=== PATIENT | female | born 1995 | race Caucasian/White ===

== ENCOUNTER 2022-05-26 09:24 | Emergency (ER) | payer OTHER ==
--- NOTE | 2022-05-26 11:04 | ED Physician Documentation ---
PD HPI HEENT - Stated complaint Stated Complaint: RT EAR PX - Chief complaint Chief Complaint: Heent - History obtained from History obtained from: Patient - Additional information Additional information: The patient comes to the emergency department chief complaint of right ear pain. She states that this is been going on for the last couple of days and feels like prior to her infection she has had before. The patient has also had some trouble with allergies recently. She states they just moved here with the [facility] at the beginning of April and that she has not established any care yet. She does note that she has been treated 4 times in the last year for otitis media, and has been wanting to see an ENT to sort out her recurrent ear infections. She denies any fevers or chills. No recent upper respiratory infection. She states her hearing is slightly diminished. She has not been flying or diving recently. She states that in the process of the move they did have some variation in elevation with driving but she did not notice any ear problems at that time. No ringing in the ear. She has noticed a sore "lump" behind her ear. She also has a slight headache. No other complaints at this time. Review of Systems Ten Systems: 10 systems reviewed and negative Constitutional: reports: Reviewed and negative Eyes: reports: Reviewed and negative Ears: reports: Loss of hearing, Ear pain. denies: Drainage/discharge, Tinnitus/ringing Nose: reports: Reviewed and negative Throat: reports: Reviewed and negative Cardiac: reports: Reviewed and negative Respiratory: reports: Reviewed and negative GI: reports: Reviewed and negative : reports: Reviewed and negative Skin: reports: Reviewed and negative Musculoskeletal: reports: Reviewed and negative Neurologic: reports: Headache. denies: Head injury Psychiatric: reports: Reviewed and negative Endocrine: reports: Reviewed and negative Immunocompromised: reports: Reviewed and negative PD PAST MEDICAL HISTORY - Present Medications Home Medications: Ambulatory Orders Medication Instructions Recorded Confirmed Atorvastatin [Lipitor] 20 mg PO DAILY 05/26/22 05/26/22 Cyclobenzaprine [Flexeril] 10 mg PO PRN PRN 05/26/22 05/26/22 Famotidine [Acid-Pep] 20 mg PO PRN PRN 05/26/22 05/26/22 Fluoxetine HCl 60 mg PO DAILY 05/26/22 05/26/22 Fluticasone [Flonase] 2 sprays DEMAR DAILY 05/26/22 05/26/22 Ibuprofen [Motrin] 1 tablet PO PRN PRN 05/26/22 05/26/22 Pseudoephedrine HCl [Sudafed 240 mg PO DAILY PRN #10 tab 05/26/22 24-Hour] Rizatriptan Benzoate [Rizatriptan] 5 mg PO PRN PRN 05/26/22 05/26/22 buPROPion [Wellbutrin Xl] 300 mg PO DAILY 05/26/22 05/26/22 hydrOXYzine HCL [Hydroxyzine HCl] 0 mg PO PRN PRN 05/26/22 05/26/22 metFORMIN [Glucophage] 500 mg PO BID 05/26/22 05/26/22 predniSONE [Deltasone] 60 mg PO DAILY 5 Days #15 tablet 05/26/22 - Allergies Allergies/Adverse Reactions: Allergies Allergy/AdvReac Type Severity Reaction Status Date / Time No Known Drug Allergies Allergy Verified 05/26/22 09:32 PD ED PE NORMAL - Vitals Vital signs reviewed: Yes - General General: Alert and oriented X 3, No acute distress, Well developed/nourished - HEENT HEENT: Atraumatic, PERRL, EOMI, Moist mucous membranes, Other (Mild bulging of the right TM, which is translucent and nonerythematous. Clear fluid noted behind the TM with a bubble in it. TM is intact. No erythema or drainage in the canal. Posterior auricular lymph node that is mildly shotty and tender.) - Neck Neck: Supple, no meningeal sign - Respiratory Respiratory: No respiratory distress - Derm Derm: Normal color, Warm and dry, No rash - Extremities Extremities: No deformity - Neuro Neuro: Alert and oriented X 3 - Psych Psych: Normal mood, Normal affect Results - Vitals Vitals: Vital Signs - 24 hr 05/26/22 09:30 Temperature 37.2 C Heart Rate 79 Respiratory 14 Rate Blood Pressure 133/85 H O2 Saturation 98 Oxygen O2 Source Room air PD MEDICAL DECISION MAKING - ED course Complexity details: considered differential, d/w patient, d/w family ED course: I discussed with the patient that at this point in time, her ear does not appear infected. However, there is some fluid behind the eardrum and a little bit of bulging and most likely, the discomfort in the ear is due to pressure behind the tympanic membrane. I will put her on a course of prednisone and Sudafed to try to relieve any inflammation and clogging of the eustachian tube and allow pressure to equalize. The patient is advised to get established with primary care through the [facility] and to follow-up this issue if she is not feeling better after the next week. If she develops worsening pain or if she develops fevers, she is advised to return to the emergency department. Departure - Departure Disposition: 01 Home, Self Care Clinical Impression: Serous otitis media Qualifiers: Chronicity: acute Laterality: right Recurrence: not specified as recurrent Qualified Code(s): H65.01 - Acute serous otitis media, right ear Condition: Stable Instructions: ED Otitis Media Serous Adult Prescriptions: predniSONE [Deltasone] 60 mg PO DAILY 5 Days #15 tablet Pseudoephedrine HCl [Sudafed 24-Hour] 240 mg PO DAILY PRN #10 tab PRN Reason: Allergy Symptoms Comments: There is no evidence of infection today, but you do have some clear fluid behind your eardrum that is causing the eardrum to bulge slightly. This is most likely the cause of your discomfort, and his eardrum is very sensitive. Most likely, your eustachian tubes are not properly relieving the pressure and fluid from behind your eardrum and this is the reason for the exam findings and symptoms. Other findings of infection are not present however, and at this time, it is not appropriate to start antibiotics. We will put you on a decongestant and a short course of steroids to help relieve inflammation both in the ear itself and in the tube and to open up the tube so the pressure and fluid can drain out. This should bring relief of your symptoms. If you are not feeling better in the next week, please follow-up with your primary care physician through the [facility] to discuss the next best step. Your prescriptions have been electronically transmitted to [facility] in [place].
[2022-05-26] MEDS: predniSONE 20 MG TABLET PO STA (11:08)
[2022-05-26] MEDS: PSEUDOEPHEDRINE 30 MG TABLET PO STA (11:08)
[2022-05-26 11:13] VITALS: BP 122/82
== END 2022-05-26 11:12 | disposition home or self-care (01) ==
LOC: ED 09:24
DX: H65.01 Acute serous otitis media, right ear (principal)
CPT/HCPCS: 99282; 99284; A9270; J7512

== ENCOUNTER 2022-09-18 07:50 | Outpatient (CLI) | payer OTHER ==
[2022-09-18 11:50] LABS: BASOPHILS % (AUTO) 0.7 %; EOSINOPHILS # (AUTO) 0.3 10^3/uL (0.0-0.7); EOSINOPHILS % (AUTO) 5.4 %; HCT - HEMATOCRIT 40.8 % (37.0-47.0); HGB - HEMOGLOBIN 13.2 g/dL (12.0-16.0); LYMPHOCYTES # (AUTO) 2.5 10^3/uL (1.5-3.5); LYMPHOCYTES % (AUTO) 41.7 %; MEAN CORPUSCULAR HEMOGLOBIN 28.1 pg (27.0-31.0); MEAN CORPUSCULAR HGB CONC 32.4 g/dL (32.0-36.0); MEAN PLATELET VOLUME 11.9 fL (7.9-10.8); MONOCYTES # (AUTO) 0.5 10^3/uL (0.0-1.0); MONOCYTES % (AUTO) 8.8 %; NEUTROPHILS # (AUTO) 2.6 10^3/uL (1.5-6.6); NEUTROPHILS % (AUTO) 43.2 %; PLT - PLATELET COUNT 318 10^3/uL (130-450); RED BLOOD COUNT 4.69 10^6/uL (4.20-5.40); WHITE BLOOD COUNT 5.9 x10^3/uL (4.8-10.8)
[2022-09-18 12:08] LABS: ESTIMATED AVERAGE GLUCOSE 108 mg/dL (70-100); HEMOGLOBIN A1c% 5.4 % (4.27-6.07)
[2022-09-18 12:19] LABS: ALBUMIN 4.4 g/dL (3.2-5.5); ALBUMIN/GLOBULIN RATIO 1.3 (1.0-2.2); ALKALINE PHOSPHATASE 58 IU/L (42-121); ALT ALANINE AMINOTRANSFERASE 21 IU/L (10-60); AST ASPARTATE AMINOTRANSFERASE 18 IU/L (10-42); BILIRUBIN,TOTAL 0.6 mg/dL (0.2-1.0); BUN - BLOOD UREA NITROGEN 13 mg/dL (6-20); CALCIUM 9.5 mg/dL (8.5-10.3); CARBON DIOXIDE - CO2 27 mmol/L (21-32); CHLORIDE 101 mmol/L (101-111); CHOL/HDL RATIO 3.8 (<4.4); CHOLESTEROL 227 mg/dL; CREATININE 0.8 mg/dL (0.4-1.0); GFR - MDRD 87 (>89); GLUCOSE 80 mg/dL (70-100); HDL CHOLESTEROL 60 mg/dL; LDL CHOLESTEROL,CALCULATED 154 mg/dL; LDL/HDL RATIO 2.6 (<4.4); POTASSIUM 3.9 mmol/L (3.5-5.0); SODIUM 136 mmol/L (135-145); TOTAL PROTEIN 7.7 g/dL (6.7-8.2); TRIGLYCERIDES 64 mg/dL; VLDL CHOLESTEROL 13 mg/dL
[2022-09-18 12:27] LABS: THYROID STIMULATING HORMONE 2.87 uIU/mL (0.34-5.60)
== END 2022-09-18 07:51 | disposition home or self-care (01) ==
LOC: LAB.N 07:50
PROVIDERS: ATTEND Nurse Practitioner
DX: D64.9 Anemia, unspecified (principal); E66.9 Obesity, unspecified; Z51.81 Encounter for therapeutic drug level monitoring; Z13.220 Encounter for screening for lipoid disorders
CPT/HCPCS: 36415; 80053; 80061; 83036; 83721; 84443; 85025

== ENCOUNTER 2022-10-19 08:00 | Outpatient (CLI) | payer OTHER | END 2022-10-19 23:59 | disposition home or self-care (01) | LOC: LAB.N 08:00 | PROVIDERS: ATTEND Nurse Practitioner | DX: Z33.1 Pregnant state, incidental (principal) | CPT/HCPCS: 36415; 84702 ==

== ENCOUNTER 2022-11-15 08:00 | Outpatient (CLI) | payer OTHER ==
[2022-11-15 14:52] LABS: BILIRUBIN,URINE NEGATIVE (NEGATIVE); GLUCOSE, URINE (UA) NEGATIVE (NEGATIVE); KETONES,URINE (UA) NEGATIVE (NEGATIVE); LEUKOCYTE ESTERASE, URINE NEGATIVE (NEGATIVE); NITRITE,URINE NEGATIVE (NEGATIVE); OCCULT BLOOD,URINE NEGATIVE (NEGATIVE); PH,URINE 6.5 PH (5.0-7.5); PROTEIN,URINE NEGATIVE (NEGATIVE); UROBILINOGEN,URINE 0.2 (NORMAL) E.U./dL (NORMAL)
[2022-11-15 15:20] LABS: AMORPHOUS SEDIMENT,UR Moderate /LPF; BACTERIA,URINE Few /HPF (None Seen); CLARITY,URINE CLOUDY (CLEAR); RBC,URINE 0-5 /HPF (0-5); SQUAMOUS EPITHELIAL CELL,UR FEW Squamous (<= Few)
[2022-11-15 15:21] LABS: CRYSTALS,URINE 6-10 Calcium Oxalate /LPF
== END 2022-11-15 23:59 | disposition home or self-care (01) ==
LOC: LAB.WC 08:00
PROVIDERS: ATTEND Nurse Practitioner
DX: Z34.90 Encounter for supervision of normal pregnancy, unspecified, unspecified trimester (principal)
CPT/HCPCS: 81001; 87086

== ENCOUNTER 2022-11-29 07:21 | Outpatient (CLI) | payer OTHER ==
--- NOTE | 2022-11-29 09:32 | Ultrasound Report ---
PROCEDURE: OB First Trimester INDICATIONS: POSITIVE TEST OUTSIDE/PRIOR DATING DATA: Last menstrual period (LMP): 09/19/2022. LMP-based estimated date of delivery (CARLOS A): 06/26/2023. First dating scan (date and location): 11/29/2022. Estimated date of delivery (CARLOS A) from first dating scan: 06/26/2023. TECHNIQUE: Real-time scanning was performed of the fetus and maternal pelvic organs, with image documentation. COMPARISON: None FINDINGS: Heart is 160 bpm. Cervical length is about 4.8 cm, limiting evaluation. Mean gestational sac diameter is 4.6 cm. [place]-rump length is 3.2 cm. Ultrasound age is 10 weeks and 1 day. Yolk sac is seen measuring 4 to 5 mm. Corpus luteum not definitely identified. IMPRESSION: Living intrauterine at an ultrasound age of 10 weeks and 1 day. Reviewed by: Vadim Ricks MD on 11/29/2022 9:31 AM PST Approved by: Vadim Ricks MD on 11/29/2022 9:31 AM PST Station ID: [id number]
== END 2022-11-29 07:22 | disposition home or self-care (01) ==
LOC: DI 07:21
PROVIDERS: ATTEND Nurse Practitioner
DX: Z34.91 Encounter for supervision of normal pregnancy, unspecified, first trimester (principal)

== ENCOUNTER 2022-12-12 08:00 | Outpatient (CLI) | payer OTHER ==
[2022-12-14 00:01] LABS: CHLAMYDIA TRACHOMATIS DNA NEGATIVE (NEGATIVE); NEISSERIA GONORRHOEAE DNA NEGATIVE (NEGATIVE); TRICHOMONAS VAGINALIS DNA NEGATIVE (NEGATIVE)
== END 2022-12-12 23:59 | disposition home or self-care (01) ==
LOC: LAB.R 08:00
PROVIDERS: ATTEND Obstetrics & Gynecology
DX: Z11.3 Encounter for screening for infections with a predominantly sexual mode of transmission (principal)
CPT/HCPCS: 87491; 87591; 87661

== ENCOUNTER 2022-12-27 09:01 | Outpatient (CLI) | payer OTHER ==
[2022-12-27 11:57] LABS: BASOPHILS % (AUTO) 0.4 %; EOSINOPHILS # (AUTO) 0.4 10^3/uL (0.0-0.7); EOSINOPHILS % (AUTO) 4.6 %; HCT - HEMATOCRIT 39.6 % (37.0-47.0); HGB - HEMOGLOBIN 12.9 g/dL (12.0-16.0); LYMPHOCYTES # (AUTO) 2.3 10^3/uL (1.5-3.5); LYMPHOCYTES % (AUTO) 30.4 %; MEAN CORPUSCULAR HEMOGLOBIN 29.1 pg (27.0-31.0); MEAN CORPUSCULAR HGB CONC 32.6 g/dL (32.0-36.0); MEAN CORPUSCULAR VOLUME 89.2 fL (81.0-99.0); MEAN PLATELET VOLUME 11.7 fL (7.9-10.8); MONOCYTES # (AUTO) 0.5 10^3/uL (0.0-1.0); MONOCYTES % (AUTO) 6.4 %; NEUTROPHILS # (AUTO) 4.4 10^3/uL (1.5-6.6); NEUTROPHILS % (AUTO) 57.9 %; PLT - PLATELET COUNT 269 10^3/uL (130-450); RED BLOOD COUNT 4.44 10^6/uL (4.20-5.40); WHITE BLOOD COUNT 7.5 x10^3/uL (4.8-10.8)
[2022-12-28 05:10] LABS: HIV SCREEN 4TH GENERATION Non Reactive (Non Reactive)
[2022-12-28 06:09] LABS: HCV AB <0.1 s/co ratio (0.0-0.9)
[2022-12-28 10:08] LABS: VARICELLA-ZOSTER AB IGG 242 index (Immune >165)
[2022-12-29 07:15] LABS: RPR Non Reactive (Non Reactive)
[2022-12-29 11:08] LABS: HBsAG SCREEN Negative (Negative)
== END 2022-12-27 09:02 | disposition home or self-care (01) ==
LOC: LAB.N 09:01
PROVIDERS: ATTEND Nurse Practitioner
DX: O99.211 Obesity complicating pregnancy, first trimester (principal)
CPT/HCPCS: 36415; 85025; 86592; 86762; 86787; 86803; 86850; 86900; 86901; 87340; 87389

== ENCOUNTER 2022-12-27 09:52 | Outpatient (CLI) | payer OTHER | END 2022-12-27 09:53 | disposition home or self-care (01) | LOC: LAB 09:52 | PROVIDERS: ATTEND Obstetrics & Gynecology | DX: Z53.9 Procedure and treatment not carried out, unspecified reason (principal) ==

== ENCOUNTER 2023-02-10 14:22 | Outpatient (CLI) | payer OTHER ==
--- NOTE | 2023-02-10 17:45 | Ultrasound Report ---
PROCEDURE: OB Detailed Eval INDICATIONS: SUPERVISION OF OUTSIDE/PRIOR DATING DATA: Last menstrual period (LMP): 09/19/2022. LMP-based estimated date of delivery (CARLOS A): 06/26/2023. First dating scan (date and location): 11/29/2022. Estimated date of delivery (CARLOS A) from first dating scan: 06/26/2023. TECHNIQUE: Real-time scanning was performed of the fetus, with image documentation and biometric measurements. Endovaginal scanning: Not performed COMPARISON: 11/29/2022 FINDINGS: General: A single living intrauterine gestation is present. Presentation: Vertex Placenta: Placental position is posterior, without previa. Amniotic fluid index: 15.8 cm, normal for gestational age. heart rate: 137 beats per minute. Maternal cervical canal: 4.6 cm long; normal length is 2.5 cm or more. biometrics: Biparietal diameter: 4.6 cm, 20 weeks 4 days Head circumference: 18.3 cm, 20 weeks 5 days Abdominal circumference: 15.9 cm, 21 weeks 0 days Femur length: 3.4 cm, 20 weeks 6 days Estimated gestational age from initial scan: 20 weeks 4 days. Composite gestational age from present scan: 20 weeks 4 days Estimated weight and percentile: 384 g, 63rd percentile Measurement variability in biometric dating: +/- 10 days from 12-20 weeks gestation, +/- 2 weeks from 20-30 weeks gestation, +/- 3 weeks at 30 weeks gestation or later. Anatomic survey: Neuro: Ventricles are normal at less than 10 mm. Cisterna magna is normal at 3-11 mm. Cerebellum i s normal in size and morphology. Nuchal skin fold: Normal at less than 6 mm between 14 and 20 weeks gestational age. Face: Nose and lips, facial profile are normal. Spine: No evidence for spina bifida. Heart: 4-chambered heart is present, with normal ventricular outflow tracts. Diaphragm: Diaphragm is intact. Stomach: Left-sided stomach is present. Kidneys: No hydronephrosis. Normal is less than 5 mm in 2nd trimester, less than 7 mm in 3rd trimester. Cord: 3 vessel cord has orthotopic insertion. Bladder: Normal in size. Extremities: All 4 extremities are visualized. IMPRESSION: 1. Single living intrauterine . 2. Normal second semester anatomy survey. No anomalies detected at this time. Reviewed by: Edilson Kennedy MD on 02/10/2023 5:44 PM PDT Approved by: Edilson Kennedy MD on 02/10/2023 5:44 PM PDT Station ID: [id number]
== END 2023-02-10 14:23 | disposition home or self-care (01) ==
LOC: DI 14:22
PROVIDERS: ATTEND Obstetrics & Gynecology
DX: Z34.92 Encounter for supervision of normal pregnancy, unspecified, second trimester (principal)

== ENCOUNTER 2023-03-31 14:33 | Outpatient (CLI) | payer OTHER ==
[2023-03-31 17:37] LABS: HCT - HEMATOCRIT 36.8 % (37.0-47.0); HGB - HEMOGLOBIN 12.1 g/dL (12.0-16.0); MEAN CORPUSCULAR HEMOGLOBIN 30.8 pg (27.0-31.0); MEAN CORPUSCULAR HGB CONC 32.9 g/dL (32.0-36.0); MEAN CORPUSCULAR VOLUME 93.6 fL (81.0-99.0); MEAN PLATELET VOLUME 10.5 fL (7.9-10.8); RED BLOOD COUNT 3.93 10^6/uL (4.20-5.40); RED CELL DISTRIBUTION WIDTH 13.2 % (12.0-15.0); WHITE BLOOD COUNT 9.8 x10^3/uL (4.8-10.8)
== END 2023-03-31 14:34 | disposition home or self-care (01) ==
LOC: LAB.N 14:33
PROVIDERS: ATTEND Nurse Practitioner
DX: O99.212 Obesity complicating pregnancy, second trimester (principal)
CPT/HCPCS: 36415; 82950; 85027

== ENCOUNTER 2023-04-28 07:06 | Outpatient (CLI) | payer OTHER ==
--- NOTE | 2023-04-28 16:51 | Ultrasound Report ---
PROCEDURE: OB F/U or Repeat INDICATIONS: OBESITY COMPLICATING OUTSIDE/PRIOR DATING DATA: Last menstrual period (LMP): 09/19/2022. LMP-based estimated date of delivery (CARLOS A): 06/26/2023. First dating scan (date and location): 11/29/2022. Estimated date of delivery (CARLOS A) from first dating scan: 06/26/2023. TECHNIQUE: Real-time scanning was performed of the fetus, with image documentation and biometric measurements. Endovaginal scanning: No COMPARISON: 02/10/2023 FINDINGS: General: A single living intrauterine gestation is present. Presentation: Vertex Placenta: Placental position is posterior, without previa. Amniotic fluid index: 13.9 cm, for a 4th percentile for gestational age. heart rate: 126 beats per minute. Maternal cervical canal: 5.4 cm long; normal length is 2.5 cm or more. biometrics: Biparietal diameter: 82 mm; 32 weeks 6 days Head circumference: 302 mm; 33 weeks 4 days Abdominal circumference: 282 mm intercondylar 2 weeks 2 days Femur length: 62 mm ankle and 32 weeks 2 days Estimated gestational age from initial scan: 31 weeks 4 days Composite gestational age from present scan: 32 weeks 5 days Estimated weight and percentile: 1975 g, which is at the 60th percentile for gestational age Measurement variability in biometric dating: +/- 10 days from 12-20 weeks gestation, +/- 2 weeks from 20-30 weeks gestation, +/- 3 weeks at 30 weeks gestation or more. Other: Not applicable. IMPRESSION: 1. Single living intrauterine gestation. 2. Appropriate interval growth. Reviewed by: Rachele Shook MD on 04/28/2023 4:50 PM PDT Approved by: Rachele Shook MD on 04/28/2023 4:50 PM PDT Station ID: [id number]
== END 2023-04-28 07:07 | disposition home or self-care (01) ==
LOC: DI 07:06
PROVIDERS: ATTEND Obstetrics & Gynecology
DX: O99.213 Obesity complicating pregnancy, third trimester (principal); Z3A.31 31 weeks gestation of pregnancy

== ENCOUNTER 2023-05-15 08:00 | Outpatient (CLI) | payer OTHER ==
[2023-05-15 15:58] LABS: BILIRUBIN,URINE NEGATIVE (NEGATIVE); GLUCOSE, URINE (UA) NEGATIVE (NEGATIVE); KETONES,URINE (UA) TRACE mg/dL (NEGATIVE); LEUKOCYTE ESTERASE, URINE SMALL (NEGATIVE); NITRITE,URINE NEGATIVE (NEGATIVE); OCCULT BLOOD,URINE NEGATIVE (NEGATIVE); PROTEIN,URINE NEGATIVE (NEGATIVE); UROBILINOGEN,URINE 0.2 (NORMAL) E.U./dL (NORMAL)
[2023-05-15 15:59] LABS: CLARITY,URINE HAZY (CLEAR)
[2023-05-15 16:09] LABS: BACTERIA,URINE Moderate /HPF (None Seen); MUCUS,URINE Moderate Strands; RBC,URINE 0-5 /HPF (0-5); SQUAMOUS EPITHELIAL CELL,UR FEW Squamous (<= Few)
== END 2023-05-15 23:59 | disposition home or self-care (01) ==
LOC: LAB.WC 08:00
PROVIDERS: ATTEND Obstetrics & Gynecology
DX: R30.0 Dysuria (principal)
CPT/HCPCS: 81001; 87086; 87181

== ENCOUNTER 2023-05-28 11:23 | Outpatient (CLI) | payer OTHER ==
[2023-05-28 11:34] LABS: HCT - HEMATOCRIT 34.3 % (37.0-47.0); HGB - HEMOGLOBIN 11.5 g/dL (12.0-16.0); MEAN CORPUSCULAR HEMOGLOBIN 29.8 pg (27.0-31.0); MEAN CORPUSCULAR HGB CONC 33.5 g/dL (32.0-36.0); MEAN CORPUSCULAR VOLUME 88.9 fL (81.0-99.0); MEAN PLATELET VOLUME 10.6 fL (7.9-10.8); RED BLOOD COUNT 3.86 10^6/uL (4.20-5.40); RED CELL DISTRIBUTION WIDTH 11.9 % (12.0-15.0)
[2023-05-28 11:45] LABS: ALBUMIN 2.5 g/dL (3.2-5.5); ALBUMIN/GLOBULIN RATIO 0.8 (1.0-2.2); BILIRUBIN,TOTAL 0.5 mg/dL (0.2-1.0); CALCIUM 8.4 mg/dL (8.5-10.3); CREATININE 0.7 mg/dL (0.4-1.0); POTASSIUM 3.9 mmol/L (3.5-5.0); TOTAL PROTEIN 5.8 g/dL (6.7-8.2)
[2023-05-28 12:02] LABS: CREATININE,URINE 45.2 mg/dL
[2023-05-28 12:07] LABS: TOTAL PROTEIN,URINE TIMED < 6 mg/dL
== END 2023-05-28 11:24 | disposition home or self-care (01) ==
LOC: LAB 11:23
PROVIDERS: ATTEND Obstetrics & Gynecology
DX: O14.00 Mild to moderate pre-eclampsia, unspecified trimester (principal)
CPT/HCPCS: 36415; 80053; 82570; 84156; 85027

== ENCOUNTER 2023-05-29 08:00 | Outpatient (CLI) | payer OTHER | END 2023-05-29 23:59 | disposition home or self-care (01) | LOC: LAB.WC 08:00 | PROVIDERS: ATTEND Obstetrics & Gynecology | DX: O14.03 Mild to moderate pre-eclampsia, third trimester (principal); Z3A.35 35 weeks gestation of pregnancy | CPT/HCPCS: 87797 ==

== ENCOUNTER 2023-06-17 19:10 | Inpatient (IN) | payer OTHER ==
[2023-06-17] MEDS ORDERED: LACTATED RINGERS 1,000 ML IV PRN (22:10)
[2023-06-17] MEDS ORDERED: CARBOPROST TROMETHAMINE 250 MCG/ML AMP IM PRN (22:10)
[2023-06-17] MEDS ORDERED: miSOPROStoL 200 MCG TABLET BC PRN (22:10)
[2023-06-17] MEDS ORDERED: TRANEXAMIC ACID IN NACL 1,000 MG/100 ML BAG IV PRN (22:10)
[2023-06-17] MEDS ORDERED: miSOPROStoL 200 MCG TABLET PR PRN (22:10)
[2023-06-17] MEDS ORDERED: OXYTOCIN/SODIUM CHLORIDE 500 ML IV PRN (22:10)
[2023-06-17] MEDS ORDERED: fentaNYL 100 MCG/2 ML VIAL IVP PRN (22:10)
[2023-06-17] MEDS ORDERED: TERBUTALINE 1 MG/ML VIAL SUBQ PRN (22:10)
[2023-06-17] MEDS ORDERED: OXYTOCIN 10 UNIT/ML VIAL IM PRN (22:10)
[2023-06-17] MEDS ORDERED: AMPICILLIN 2 GM in SODIUM CHLORIDE 0.9% MINIBAG 100 ML IV ONE (22:10)
[2023-06-17] MEDS ORDERED: METHYLERGONOVINE 0.2 MG/ML VIAL IM PRN (22:10)
[2023-06-17] MEDS ORDERED: lidocaine 1% 20 ML MDV ID PRN (22:10)
[2023-06-17] MEDS ORDERED: SODIUM CHLORIDE FLUSH 0.9% 10 ML SYRINGE IVP PRN (22:10)
--- NOTE | 2023-06-17 22:18 | HISTORY & PHYSICAL EXAMINATION ---
Admit History - Visit Reason Visit Reason: Contractions - : 2 Parity: 0 Care: positive: [facility] Complications This : positive: Treated for GBS/UTI - Mother's Labs Mother's Blood Type: positive: O Mother's RH: positive: Positive GBS: positive: Group B Strep Positive Rubella Status: positive: Immune - Other Maternal History Other Maternal History: Med: Anxiety, depression, PTSD, borderline personality disorder, OCD Surg: Bilateral knee Fam: Mother- thyroid, DM, hyperlipidemia, depression, anemia Social: , denies patience - HPI Diagnosis/Indication for NST: Other (Early term labor) Vital Signs Temperature 98.1 F 06/17/23 19:25 Heart Rate 77 06/17/23 19:25 Respiratory Rate 18 06/17/23 19:25 Blood Pressure 125/87 H 06/17/23 19:25 Temperature 98.1 F 06/17/23 19:25 Heart Rate 77 06/17/23 19:25 Respiratory Rate 18 06/17/23 19:25 Blood Pressure 125/87 H 06/17/23 19:25 O2 Saturation If not protocol: Oxygen Flow, liters/minute - NST Procedure NST Procedure Start Time 11:17 Stop Time 11:43 EFM: 130s, moderate variability, positive 15x15 accelerations, no decelerations [place]: contractions every 4 min NST reactive/Cat 1 Performed and read 06/17/23 - Results and Plan Plan: Cervical change from 2cm to 5cm, admitted in active labor Meds/Allgy - Home Medications Home Medications: Ambulatory Orders Medication Instructions Recorded Confirmed Famotidine [Acid-Pep] 20 mg PO PRN PRN 05/26/22 05/26/22 Fluoxetine HCl 60 mg PO DAILY 05/26/22 05/26/22 Fluticasone [Flonase] 2 sprays DEMAR DAILY 05/26/22 05/26/22 buPROPion [Wellbutrin Xl] 300 mg PO DAILY 05/26/22 05/26/22 - Allergies Allergies/Adverse Reactions: Allergies Allergy/AdvReac Type Severity Reaction Status Date / Time No Known Drug Allergies Allergy Verified 05/26/22 09:32 Physical - Abdominal Exam Vital Signs: Temp Pulse Resp BP Pulse Ox O2 Flow Rate 98.1 F 77 18 125/87 H 06/17/23 19:25 06/17/23 19:25 06/17/23 19:25 06/17/23 19:25 Contraction Frequency (min/apart): 4 Contraction Intensity: positive: Mild to moderate Uterine Resting Tone: positive: Soft - Monitoring Heart Rate Baseline: 130 Strip Review: positive: Category I - Presentation Presentation: positive: Vertex (Placenta posterior, EFW 3400g) - Vaginal Exam Membranes: positive: Membranes intact Dilation (in cm): 6 Effacement (%): 100 Station: positive: -3 Cervical Position: positive: Midposition Plan for Labor - Plan For Labor I expect patient to be DC'd or transferred within 96 hours.: Yes Plan for Labor: 27yo at 38.5w presenting with painful contractions every 4 minutes intermittently since this morning. Denies leaking fluid or bleeding. Good movement. complicated by depression/anxiety, BMI 36, GBS UTI. VSS NST reactive Cervical change from 2cm to 6cm in triage. 27yo at 38.5w by LMP consistent with 10w US admitted in active labor - Admit - CBC, T&S - Continue Wellbutrin and fluoxetine - Start ampicillin for GBS now
[2023-06-17 22:53] LABS: BASOPHILS % (AUTO) 0.1 %; EOSINOPHILS # (AUTO) 0.1 10^3/uL (0.0-0.7); EOSINOPHILS % (AUTO) 0.4 %; HCT - HEMATOCRIT 39.5 % (37.0-47.0); HGB - HEMOGLOBIN 13.1 g/dL (12.0-16.0); LYMPHOCYTES # (AUTO) 2.1 10^3/uL (1.5-3.5); LYMPHOCYTES % (AUTO) 15.1 %; MEAN CORPUSCULAR HGB CONC 33.2 g/dL (32.0-36.0); MEAN CORPUSCULAR VOLUME 87.4 fL (81.0-99.0); MEAN PLATELET VOLUME 11.4 fL (7.9-10.8); MONOCYTES # (AUTO) 0.8 10^3/uL (0.0-1.0); MONOCYTES % (AUTO) 5.5 %; NEUTROPHILS # (AUTO) 10.7 10^3/uL (1.5-6.6); NEUTROPHILS % (AUTO) 78.3 %; PLT - PLATELET COUNT 246 10^3/uL (130-450); RED BLOOD COUNT 4.52 10^6/uL (4.20-5.40); RED CELL DISTRIBUTION WIDTH 12.3 % (12.0-15.0); WHITE BLOOD COUNT 13.7 x10^3/uL (4.8-10.8)
[2023-06-17] MEDS ORDERED: LACTATED RINGERS 1,000 ML IV SCH (23:00)
[2023-06-17] MEDS ORDERED: SODIUM CHLORIDE FLUSH 0.9% 10 ML SYRINGE IVP SCH (23:00)
[2023-06-17] MEDS ORDERED: ROPIVACAINE 0.2% 200 MG/100 ML BAG EP ONE (23:07)
[2023-06-17] MEDS ORDERED: ePHEDrine 50 MG/ML VIAL IVP PRN (23:51)
[2023-06-17] MEDS ORDERED: NALBUPHINE 10 MG/ML AMP IVP PRN (23:51)
[2023-06-17] MEDS ORDERED: diphenhydrAMINE INJ 50 MG/ML VIAL IVP PRN (23:51)
[2023-06-17] MEDS ORDERED: ROPIVACAINE 0.2% 200 MG/100 ML BAG EP PRN (23:51)
[2023-06-17] MEDS ORDERED: NALOXONE 0.4 MG/ML VIAL IVP PRN (23:51)
--- NOTE | 2023-06-17 23:55 | ANESTHESIA ---
Pre-Anesthesia VS, & Labs - Diagnosis active labor - Procedure labor epidural Vital Signs: Temp Pulse Resp BP Pulse Ox O2 Flow Rate 36.7 C 77 18 125/87 H 06/17/23 22:47 06/17/23 22:47 06/17/23 22:47 06/17/23 22:47 Height: 5 ft 6 in Weight (kg): 104.326 kg Body Mass Index: 37.1 BMI Classification: Obese - NPO Other (clears from now until delivery) - Is Patient ?: Yes - Lab Results Current Lab Results: Laboratory Tests 06/17/23 22:40: WBC 13.7 H, RBC 4.52, Hgb 13.1, Hct 39.5, MCV 87.4, MCH 29.0, MCHC 33.2, RDW 12.3, Plt Count 246, MPV 11.4 H, Neut # (Auto) 10.7 H, Lymph # (Auto) 2.1, [place] # (Auto) 0.8, Eos # (Auto) 0.1, Baso # (Auto) 0.0, Absolute Nucleated RBC 0.00, Nucleated RBC % 0.0 06/17/23 22:40: Blood Type O POSITIVE, Antibody Screen NEGATIVE Fish Bones: 06/17/23 22:40 Home Medications and Allergies Active Medications Bupropion HCl (Bupropion Xl 150 Mg Tablet) 300 mg PO DAILY [facility] Carboprost Tromethamine (Carboprost Tromethamine 250 Mcg/Ml Amp) 250 mcg IM .ONCE PRN PRN Reason: Hemorrhage Diphenhydramine HCl (Diphenhydramine Inj 50 Mg/Ml Vial) 12.5 - 25 mg IVP Q6HR PRN PRN Reason: ITCHING Fentanyl (Fentanyl 100 Mcg/2 Ml Vial) 50 mcg IVP Q1H PRN PRN Reason: Severe Pain (score 7-10) Fluoxetine HCl (Fluoxetine 10 Mg Capsule) 80 mg PO DAILY RI[place] Lactated Ringer's (Lr) 500 mls @ 999 mls/hr IV PRN PRN PRN Reason: PER PHYSICIAN ORDER Oxytocin/Sodium Chloride (Pitocin/Sodium Chloride) 500 mls @ 999 mls/hr IV PRN PRN; Protocol PRN Reason: POST- HEMORR PREVENTION Tranexamic Acid (Tranexamic 1,000 Mg/100ml-Nacl) 1,000 mg in 100 mls @ 600 mls/hr IV Q30M PRN PRN Reason: EBL >1200mL and within 3hr Lactated Ringer's (Lr) 1,000 mls @ 125 mls/hr IV .Q8H [facility] Last Admin: 06/17/23 23:22 Dose: 125 mls/hr Ampicillin Sodium 1 gm/ Sodium (Chloride) 100 mls @ 200 mls/hr IV Q4H [facility] Lidocaine HCl (Lidocaine 1% 20 Ml Mdv) 20 ml ID .ONCE PRN PRN Reason: PERINEAL REPAIR Stop: 06/20/23 22:11 Methylergonovine Maleate (Methylergonovine 0.2 Mg/Ml Vial) 0.2 mg IM .ONCE PRN PRN Reason: Hemorrhage Misoprostol (Misoprostol 200 Mcg Tablet) 600 mcg BC .ONCE PRN PRN Reason: Hemorrhage Misoprostol (Misoprostol 200 Mcg Tablet) 800 mcg NC .ONCE PRN PRN Reason: Hemorrhage Ondansetron HCl (Ondansetron 4 Mg/2 Ml Vial) 4 mg IVP Q6HR PRN PRN Reason: Nausea / Vomiting Oxytocin (Oxytocin 10 Unit/Ml Vial) 10 unit IM .ONCE PRN PRN Reason: Step One if no IV access. Sodium Chloride (Sodium Chloride Flush 0.9% 10 Ml Syringe) 10 ml IVP PRN PRN PRN Reason: NEEDED PER PROVIDER ORDERS Sodium Chloride (Sodium Chloride Flush 0.9% 10 Ml Syringe) 10 ml IVP Q8H [facility] Terbutaline Sulfate (Terbutaline 1 Mg/Ml Vial) 0.25 mg SUBQ .ONCE PRN PRN Reason: Tachystole Famotidine [Acid-Pep] 20 mg PO PRN PRN 05/26/22 Fluoxetine HCl 60 mg PO DAILY 05/26/22 Fluticasone [Flonase] 2 sprays DEMAR DAILY 05/26/22 buPROPion [Wellbutrin Xl] 300 mg PO DAILY 05/26/22 Allergies/Adverse Reactions: Allergies Allergy/AdvReac Type Severity Reaction Status Date / Time No Known Drug Allergies Allergy Verified 05/26/22 09:32 Anes History & Medical History - Anesthetic History Anesthesia Complications: reports: No previous complications - Medical History Cardiovascular: reports: None Pulmonary: reports: None Smoking Status: Never smoker Psychosocial: reports: Depression, Anxiety History of Cancer?: No - Obstetrical History : 2 Parity: 0 Complications: reports: Treated for GBS/UTI Exam General: Alert, Oriented x3, Moderate distress Dental: WNL Mouth Opening: Greater than 4 Fingerbreadths Mallampati classification: II Thyromental Distance: greater than 6 cm Respiratory: Lungs clear Cardiovascular: Regular rate Plan Anesthesia Type: Epidural Consent for Procedure(s) Verified and Reviewed: Yes Code Status: Attempt Resuscitation ASA classification: 2-Mild systemic disease Is this case an emergency?: No
[2023-06-18] MEDS ORDERED: fentaNYL 100 MCG/2 ML VIAL ONE (00:05)
[2023-06-18] MEDS ORDERED: LIDOCAINE-MPF 1% 5 ML VIAL ONE (00:05)
[2023-06-18] MEDS: ONDANSETRON 4 MG/2 ML VIAL IVP PRN ×2 (00:05→08:01)
[2023-06-18] MEDS ORDERED: LIDOCAINE-PF 2% 10 ML AMP SUBQ ONE (00:31)
[2023-06-18] MEDS: AMPICILLIN 1 GM in SODIUM CHLORIDE 0.9% MINIBAG 100 ML IV SCH (03:57)
[2023-06-18] MEDS ORDERED: LIDOCAINE 2%-EPI 1:100000 20 ML MDV ONE (10:30)
[2023-06-18] MEDS ORDERED: WITCH HAZEL/GLYCERIN 1 PAD TOP PRN (11:09)
[2023-06-18] MEDS ORDERED: HYDROCORTISONE 1% CREAM 28 GM TUBE PR PRN (11:09)
--- NOTE | 2023-06-18 11:28 | DELIVERY NOTE ---
Delivery Note - Labor Labor: positive: Augmented by ARM, Augmented by oxytocin - Infant Delivery Method Delivery Method: positive: Spontaneous vaginal delivery - Presentation Presentation: positive: Vertex, LOP - left occiput posterior - Nuchal Cord Nuchal Cord: positive: None - Anesthetic Anesthetic Type: - Amniotic Fluid Description Amniotic Fluid Description: positive: Clear - Vacuum Use Indication for Vacuum Use: positive: Shortening of 2nd stage for maternal benefit Vacuum Extraction: positive: Successful Number of pop-offs: 0 - Episiotomy Type Episiotomy Type: positive: None - Laceration Laceration: positive: 2nd degree (vaginal laceration) - Suture Suture Size: positive: 3-0 - Delivery Outcome Delivery Outcome: positive: Livebirth - [place] : positive: Placed in direct skin contact with mother, Bulb syringe, Stimulated, Warmed, [place] used, Warmer used sex: positive: Female - Placenta Placenta: positive: Intact, Spontaneous - Estimated Blood Loss Estimated Blood Loss (in cc): 800 - Delivery Comments (Free Text/Narrative) Delivery Comments (Free Text/Narrative): 10/100/+2 with maternal pushing good efforts. Pushing almost 3 hours with good progress but mother exhausted. Offered VAVD, risks reviewed. She would like to proceed and informed consent obtained. Epidural in place. Bladder emptied and catheter removed. [place]wi vacuum applied to flexion point +3 station and used with one contraction and delivery achieved. No detachments. LOP. Shoulders and body delivered with ease. Baby girl placed on mother's abdomen. Cord clamped and cut and baby moved to warmer to waiting roof tile layer. Bleeding encountered initially after bleeding resolved with uterine massage. Pitocin infused. Second degree vaginal laceration repaired in usual fashion with 3-0 vicryl. Hemostasis. Massage performed and removed remaining clots. Bladder emptied again and catheter removed. QBL 800cc.
[2023-06-18] MEDS ORDERED: LACTATED RINGERS 1,000 ML IV SCH (12:00)
[2023-06-18] MEDS: ACETAMINOPHEN 500 MG TABLET PO SCH ×2 (12:08→20:26)
[2023-06-18] MEDS: buPROPion XL 150 MG TABLET PO SCH (12:09)
[2023-06-18] MEDS: IBUPROFEN 800 MG TABLET PO SCH ×2 (12:10→20:26)
[2023-06-18] MEDS: FLUoxetine 10 MG CAPSULE PO SCH (12:23)
[2023-06-18] MEDS: DOCUSATE SODIUM 100 MG CAPSULE PO SCH (20:26)
[2023-06-19] MEDS: IBUPROFEN 800 MG TABLET PO SCH ×4 (02:59→21:05)
[2023-06-19] MEDS: AMPICILLIN 1 GM in SODIUM CHLORIDE 0.9% MINIBAG 100 ML IV SCH (04:27)
[2023-06-19] MEDS: ACETAMINOPHEN 500 MG TABLET PO SCH ×4 (04:50→22:54)
[2023-06-19 04:53] LABS: BASOPHILS % (AUTO) 0.2 %; EOSINOPHILS % (AUTO) 0.3 %; HCT - HEMATOCRIT 29.1 % (37.0-47.0); HGB - HEMOGLOBIN 9.6 g/dL (12.0-16.0); LYMPHOCYTES # (AUTO) 3.6 10^3/uL (1.5-3.5); LYMPHOCYTES % (AUTO) 23.1 %; MEAN CORPUSCULAR HEMOGLOBIN 29.2 pg (27.0-31.0); MEAN CORPUSCULAR VOLUME 88.4 fL (81.0-99.0); MEAN PLATELET VOLUME 11.4 fL (7.9-10.8); MONOCYTES # (AUTO) 1.1 10^3/uL (0.0-1.0); NEUTROPHILS # (AUTO) 10.7 10^3/uL (1.5-6.6); NEUTROPHILS % (AUTO) 68.9 %; PLT - PLATELET COUNT 197 10^3/uL (130-450); RED BLOOD COUNT 3.29 10^6/uL (4.20-5.40); RED CELL DISTRIBUTION WIDTH 12.4 % (12.0-15.0); WHITE BLOOD COUNT 15.5 x10^3/uL (4.8-10.8)
[2023-06-19] MEDS: DOCUSATE SODIUM 100 MG CAPSULE PO SCH ×2 (08:52→21:05)
[2023-06-19] MEDS: FLUoxetine 10 MG CAPSULE PO SCH (08:52)
[2023-06-19] MEDS: buPROPion XL 150 MG TABLET PO SCH (08:52)
--- NOTE | 2023-06-19 09:18 | PROVIDER PROGRESS NOTE ---
Subjective - Prog Note Date Prog Note Date: 06/19/23 Prog Note Time: 09:16 - Subjective Subjective: Patient is PPD#1 s/p complicated by hemorrhage. Patient is doing well this morning. Ambulating, tolerating regular diet, passing flatus, voiding. Lochia is appropriate. Objective - Vital Signs/Intake & Output Vital Signs: Vital Signs x48h Pulse Resp BP Pulse Ox 06/19/23 04:48 67 16 110/71 94 Intake & Output: Intake & Output 06/16/23 06/17/23 06/18/23 06/19/23 23:59 23:59 23:59 23:59 Intake Total 2263.767 1000 Output Total 980 Balance 4831.993 7603 - Objective General Appearance: positive: No acute distress Respiratory: positive: Breath sounds nml Cardiovascular: positive: Regular rate & rhythm Abdomen: positive: Non-tender (firm fundus below umbilicus) Skin: positive: Color nml Extremities: positive: Non-tender, Pedal edema (1+ bilateral edema) Neurologic/Psychiatric: positive: Mood/affect nml - Lab Results Fish Bones: 06/19/23 04:46 Other Labs: Lab Results x24hrs 06/19/23 06/19/23 Range/Units 04:46 04:46 WBC 15.5 H (4.8-10.8) x10^3/uL RBC 3.29 L (4.20-5.40) 10^6/uL Hgb 9.6 L (12.0-16.0) g/dL Hct 29.1 L (37.0-47.0) % MCV 88.4 (81.0-99.0) fL MCH 29.2 (27.0-31.0) pg MCHC 33.0 (32.0-36.0) g/dL RDW 12.4 (12.0-15.0) % Plt Count 197 (130-450) 10^3/uL MPV 11.4 H (7.9-10.8) fL Neut # (Auto) 10.7 H (1.5-6.6) 10^3/uL Lymph # (Auto) 3.6 H (1.5-3.5) 10^3/uL [place] # (Auto) 1.1 H (0.0-1.0) 10^3/uL Eos # (Auto) 0.0 (0.0-0.7) 10^3/uL Baso # (Auto) 0.0 (0.0-0.1) 10^3/uL Absolute Nucleated RBC 0.00 x10^3/uL Nucleated RBC % 0.0 /100WBC Ferritin 22.8 (11.0-306.8) ng/mL Assessment/Plan - Problem List (1) Vaginal delivery Impression: PPD#1 reviewed signs symptoms of depression. Patient states mood is okay this morning. (2) hemorrhage Impression: pt had immediate hemorrhage lochia appropriate this morning firm fundus will start PO iron
[2023-06-19] MEDS: FERROUS SULFATE 325 MG TABLET PO SCH (18:32)
[2023-06-20] MEDS: IBUPROFEN 800 MG TABLET PO SCH ×2 (03:03→10:45)
[2023-06-20] MEDS: FLUoxetine 10 MG CAPSULE PO SCH (07:58)
[2023-06-20] MEDS: ACETAMINOPHEN 500 MG TABLET PO SCH (07:58)
[2023-06-20] MEDS: FERROUS SULFATE 325 MG TABLET PO SCH (07:58)
[2023-06-20] MEDS: buPROPion XL 150 MG TABLET PO SCH (07:58)
[2023-06-20 08:27] VITALS: BP 127/82
--- NOTE | 2023-06-20 10:01 | PROVIDER PROGRESS NOTE ---
Subjective - Prog Note Date Prog Note Date: 06/20/23 Prog Note Time: 09:59 - Subjective Subjective: Patient is PPD#2 s/p complicated by hemorrhage. Patient is doing well this morning. Ambulating, tolerating regular diet, spontaneously voiding. Lochia < menses. Objective - Vital Signs/Intake & Output Vital Signs: Vital Signs x48h Temp Pulse Resp BP Pulse Ox 06/20/23 08:00 98.1 F 61 16 127/82 H 99 06/20/23 03:05 97.8 F 68 16 123/78 98 Intake & Output: Intake & Output 06/17/23 06/18/23 06/19/23 06/20/23 23:59 23:59 23:59 23:59 Intake Total 2263.767 1000 Output Total 980 Balance 5108.071 0108 - Objective General Appearance: positive: No acute distress Respiratory: positive: Breath sounds nml Cardiovascular: positive: Regular rate & rhythm Abdomen: positive: Non-tender (firm fundus below umbilicus) Extremities: positive: Pedal edema (2+) Neurologic/Psychiatric: positive: Oriented x3, Mood/affect nml - Lab Results Fish Bones: 06/19/23 04:46 Assessment/Plan - Problem List (1) Vaginal delivery Impression: uncomplicated course. Discussed signs/symptoms of depression. Patient discharged to home today.
--- NOTE | 2023-06-20 10:03 | DISCHARGE SUMMARY ---
Discharge Summary Discharge Date: 06/20/23 Discharging Provider: Joseph Discharge Disposition: 01 Home, Self Care - DIAGNOSES Admission Diagnoses: vaginal delivery hemorrhage - HOSPITAL COURSE Hospital Course: Patient presented in labor. She had a vacuum assisted vaginal delivery. Delivery was complicated by a hemorrhage. Patient had an uncomplicated course and was discharged to home on PPD#2. - ALLERGIES Allergies/Adverse Reactions: Allergies Allergy/AdvReac Type Severity Reaction Status Date / Time No Known Drug Allergies Allergy Verified 05/26/22 09:32 - MEDICATIONS Home Medications: Ambulatory Orders Medication Instructions Recorded Confirmed Famotidine [Acid-Pep] 20 mg PO PRN PRN 05/26/22 05/26/22 Fluoxetine HCl 60 mg PO DAILY 05/26/22 05/26/22 Fluticasone [Flonase] 2 sprays DEMAR DAILY 05/26/22 05/26/22 buPROPion [Wellbutrin Xl] 300 mg PO DAILY 05/26/22 05/26/22 - PHYSICAL EXAM AT DISCHARGE General Appearance: positive: No acute distress Respiratory: positive: Breath sounds nml Cardiovascular: positive: Regular rate & rhythm Abdomen: positive: Non-tender (FFBU) Skin: positive: Color nml Extremities: positive: Pedal edema (2+) Neurologic/Psychiatric: positive: Mood/affect nml - LABS Result Diagrams: 06/19/23 04:46
--- NOTE | 2023-06-20 10:07 | Discharge Plan ---
Discharge Plan Problem Reviewed?: Yes Disposition: Home, Self Care Condition: Good Prescriptions: Docusate Sodium 100Mg Capsule [Colace 100Mg Capsule] 100 mg PO BID PRN 30 Days #60 cap PRN Reason: Constipation Ferrous Sulfate [Feosol] 325 mg PO BIDWM 30 Days #60 tab Ibuprofen [Motrin] 800 mg PO Q6H PRN #11 tab PRN Reason: Pain 5-7 Diet: Regular Activity Restrictions: nothing in the vagina No Smoking: If you smoke, Please STOP! Call for help. Follow-up with: Katie Macias ARNP [Primary Care Provider] -
--- NOTE | 2023-06-20 11:28 | Labor Flowsheet ---
Labor Flowsheet Datetime Report Generated by CPN: 06/20/2023 11:28 Datetime: 06/20/2023 07:37 VITAL SIGNS NBP Sys/Mirian/Mean (mmHg): 127 : 82 : 92 Pulse: 53 Datetime: 06/19/2023 15:00 SpO2 (%): 100 Datetime: 06/18/2023 12:30 Station Vacuum/Forceps Applied: +3 Datetime: 06/18/2023 12:15 Stage of : Recovery Datetime: 06/18/2023 11:35 PAIN Pain Scale: 4 Pain Presence: Intermittent Pain Type: Cramping Pain Location: Abdomen; Back Datetime: 06/18/2023 11:31 Temperature (C): 36.6 Datetime: 06/18/2023 11:16 LaborFlag: Labor Datetime: 06/18/2023 10:15 UTERINE ACTIVITY Monitor Mode: External Frequency (min): 3-4 Quality: Strong Duration (sec): 60-80 Pattern: Normal: <= 5 Contractions in 10 Minutes Resting Tone (Palpate): Relaxed Pitocin Checklist: At Least 1 Acceleration of 15 bpm x 15 Seconds in 30 Minutes or Adequate Variabi lity; No More than 1 Late Deceleration Occurred in Past 30 Minutes; No More than 2 Variable Decelerat ions > 60 Seconds in Duration and decreasing >60 bpm in 30 minutes; No More than 5 Uterine Contractio ns in 10 Minutes for any 20 Minute Interval; Uterus Palpates Soft between Contractions ASSESSMENT A Monitor Mode: External US FHR Baseline Rate : 130 FHR Baseline Changes: No Baseline Change Variability: Moderate 6-25 bpm Decelerations: Variable STAGE 2 Pushing: Coached on Pushing Pushing Position: Pushing with Contractions Pushing Progress: Descent with Pushing; Pushing Effectively with Contractions Datetime: 06/18/2023 09:08 MEDICATIONS Pitocin (milliunits): Increased to @ 8 Datetime: 06/18/2023 09:00 Category: Category II Datetime: 06/18/2023 08:45 Accelerations: 15X15 Datetime: 06/18/2023 07:30 VAGINAL EXAM Dilatation (cm): 10.0 Effacement (%): 100 Station: 1 Exam by: Gallito Donnelly,RN COMMUNICATION Communication: Provider at Bedside Datetime: 06/18/2023 06:52 Membrane Status: Ruptured Membranes Rupture Method: Artificial Amniotic Fluid Color: Clear Amniotic Fluid Amount: Moderate Amniotic Fluid Odor: None Datetime: 06/18/2023 06:01 Temperature Route: Oral Anesthesia Level Check: T10- Umbilicus Datetime: 06/18/2023 05:58 Vaginal Bleeding: Small Cervix, Consistency: Soft Cervix, Position: Midposition Datetime: 06/18/2023 05:47 Monitor Interventions for UA: [place] Adjusted Datetime: 06/18/2023 05:30 Contraction Comments: indeterminate of UC pattern Datetime: 06/18/2023 04:36 Patient Position/Activity: Left Tilt; High Fowlers Patient Care Comments: lateral up Datetime: 06/18/2023 03:58 Antibiotics: Ampicillin IV 1 Gm Datetime: 06/18/2023 03:30 Pain Goal: 7 Datetime: 06/18/2023 03:27 PATIENT CARE IV/Blood Work: IV Bolus Started Datetime: 06/18/2023 02:29 Hygiene: Underpad Changed Datetime: 06/18/2023 00:58 Epidural Procedure Other: Pump Started Datetime: 06/18/2023 00:51 Epidural Procedure: Loading Dose Datetime: 06/17/2023 23:50 I/O Interventions: Miles Cath Inserted Datetime: 06/17/2023 23:02 PROCEDURE TIME OUT Procedure Verify: Agreement on Procedure to be Done; Correct Patient Position ANESTHESIA Anesthesia Plans: Epidural Epidural Positioning: Sitting Datetime: 06/17/2023 23:01 Comments: 125 Datetime: 06/17/2023 22:30 Pain Coping: Requesting Pain Medication or Epidural Provider Notified (Name): aguila
== END 2023-06-20 11:15 | disposition home or self-care (01) | DRG 807 ==
LOC: WFO 19:10 → FBP 19:12 → WFO 22:20
PROVIDERS: ADMIT Obstetrics & Gynecology; ATTEND Obstetrics & Gynecology Obstetrics
PROC: 10907ZC Drainage of Amniotic Fluid, Therapeutic from Products of Conception, Via Natural or Artificial Opening (ICD-10-PCS; principal; 2023-06-18)
PROC: 10D07Z6 Extraction of Products of Conception, Vacuum, Via Natural or Artificial Opening (ICD-10-PCS; 2023-06-18)
PROC: 0KQM0ZZ Repair Perineum Muscle, Open Approach (ICD-10-PCS; 2023-06-18)
DX: O99.824 Streptococcus B carrier state complicating childbirth (principal); Z37.0 Single live birth; O75.81 Maternal exhaustion complicating labor and delivery; O72.1 Other immediate postpartum hemorrhage; O99.344 Other mental disorders complicating childbirth; F32.A Depression, unspecified; F41.9 Anxiety disorder, unspecified; O99.214 Obesity complicating childbirth; O70.1 Second degree perineal laceration during delivery; Z3A.38 38 weeks gestation of pregnancy
CPT/HCPCS: 36415; 82728; 85025; 86850; 86900; 86901; 99214; A9270; J7120; 59025

== ENCOUNTER 2023-07-21 12:12 | Outpatient (CLI) | payer OTHER ==
[2023-07-21 13:39] LABS: ESTIMATED AVERAGE GLUCOSE 100 mg/dL (70-100); HEMOGLOBIN A1c% 5.1 % (4.27-6.07)
[2023-07-21 22:33] LABS: BACTERIAL VAGINOSIS DNA NEGATIVE (NEGATIVE); CANDIDA GLABRATA DNA NEGATIVE (NEGATIVE); CANDIDA GROUP DNA NEGATIVE (NEGATIVE); CANDIDA KRUSEI DNA NEGATIVE (NEGATIVE); TRICHOMONAS VAGINALIS DNA NEGATIVE (NEGATIVE)
== END 2023-07-21 12:13 | disposition home or self-care (01) ==
LOC: LAB 12:12
PROVIDERS: ATTEND Nurse Practitioner
DX: E28.2 Polycystic ovarian syndrome (principal); R61 Generalized hyperhidrosis; N89.8 Other specified noninflammatory disorders of vagina
CPT/HCPCS: 36415; 81514; 81599; 83036; 84443; 87109

== ENCOUNTER 2023-10-07 14:16 | Outpatient (CLI) | payer OTHER ==
--- NOTE | 2023-10-07 16:59 | Ultrasound Report ---
PROCEDURE: Pelvic w/Transvaginal INDICATIONS: VAGINAL BLEEDING TECHNIQUE: Real-time scanning was performed of the pelvic organs, with image documentation. Additional endovagi nal scanning was necessary due to incomplete visualization of the adnexal and endometrial structures by transabdominal scanning. COMPARISON: None. FINDINGS: Uterus: Uterus is anteverted and normal in size at 6.6 x 2.9 x 4.0 cm. The myometrium is homogeneou s. The endometrium measures 2.3 mm in combined thickness. Intrauterine device is present. Ovaries: The right ovary measures 3.0 x 1.9 x 3.3 cm, with a calculated ovarian volume of 9.9 cc. T he left ovary measures 2.6 x 2.3 x 1.2 cm, with a calculated ovarian volume of 3.8 cc. The ovaries h ave a normal sonographic appearance. Less than 12 follicles can be seen in each ovary. No adnexal m asses are seen. No cystic lesions measuring greater than 3 cm. Other: No pathologic free abdominal or pelvic fluid. IMPRESSION: 1. No acute process. 2. Appropriately positioned IUD. Reviewed by: Rachele Shook MD on 10/07/2023 4:58 PM PST Approved by: Rachele Shook MD on 10/07/2023 4:58 PM PST Station ID: [id number]
== END 2023-10-07 14:17 | disposition home or self-care (01) ==
LOC: DI 14:16
PROVIDERS: ATTEND Nurse Practitioner
DX: N93.9 Abnormal uterine and vaginal bleeding, unspecified (principal); Z97.5 Presence of (intrauterine) contraceptive device

== ENCOUNTER 2023-10-09 08:00 | Outpatient (CLI) | payer OTHER ==
[2023-10-09 17:17] LABS: BILIRUBIN,URINE NEGATIVE (NEGATIVE); GLUCOSE, URINE (UA) NEGATIVE (NEGATIVE); KETONES,URINE (UA) NEGATIVE (NEGATIVE); LEUKOCYTE ESTERASE, URINE NEGATIVE (NEGATIVE); NITRITE,URINE NEGATIVE (NEGATIVE); OCCULT BLOOD,URINE NEGATIVE (NEGATIVE); PH,URINE 6.5 PH (5.0-7.5); PROTEIN,URINE NEGATIVE (NEGATIVE); UROBILINOGEN,URINE 0.2 (NORMAL) E.U./dL (NORMAL)
[2023-10-09 17:29] LABS: BACTERIA,URINE None Seen /HPF (None Seen); CLARITY,URINE CLEAR (CLEAR); RBC,URINE 0-5 /HPF (0-5); SQUAMOUS EPITHELIAL CELL,UR RARE Squamous (<= Few); WBC,URINE 0-3 /HPF (0-5)
[2023-10-09 19:39] LABS: BACTERIAL VAGINOSIS DNA NEGATIVE (NEGATIVE); CANDIDA GLABRATA DNA NEGATIVE (NEGATIVE); CANDIDA GROUP DNA NEGATIVE (NEGATIVE); CANDIDA KRUSEI DNA NEGATIVE (NEGATIVE); TRICHOMONAS VAGINALIS DNA NEGATIVE (NEGATIVE)
[2023-10-09 20:49] LABS: CHLAMYDIA TRACHOMATIS DNA NEGATIVE (NEGATIVE); NEISSERIA GONORRHOEAE DNA NEGATIVE (NEGATIVE)
== END 2023-10-09 23:59 | disposition home or self-care (01) ==
LOC: LAB.WC 08:00
PROVIDERS: ATTEND Nurse Practitioner
DX: R30.0 Dysuria (principal); N89.8 Other specified noninflammatory disorders of vagina
CPT/HCPCS: 81001; 81514; 81599; 87086; 87109; 87491; 87591; 87661

== ENCOUNTER 2023-10-22 08:56 | Emergency (ER) | payer OTHER ==
[2023-10-22 09:16] VITALS: BP 120/82; O2SAT 99
--- NOTE | 2023-10-22 10:01 | XRAY Report ---
PROCEDURE: Knee 3 View RT INDICATIONS: injury/pain TECHNIQUE: 3 views of the knee(s) were acquired. COMPARISON: None. FINDINGS: Bones: No fractures or dislocations. No suspicious bony lesions. Fixation screws are noted within t he superior tibia. No hardware fracture or findings to suggest loosening. Soft tissues: No knee joint effusion. No suspicious soft tissue calcifications or masses. IMPRESSION: No acute bony abnormality. Postoperative change. Reviewed by: Elsa Larios MD on 10/22/2023 10:00 AM [facility] Approved by: Elsa Larios MD on 10/22/2023 10:00 AM [facility] Station ID: [id number]
--- NOTE | 2023-10-22 10:01 | ED Physician Documentation ---
History of Present Illness - Stated complaint Stated Complaint: RT KNEE INJ - Chief complaint Chief Complaint: Ext Problem - History obtained from History obtained from: Patient - Additonal information Additional information: The pt comes to the ED with CC of R knee pain. She thinks she has been having to climb the stairs more than usual in recent days, but otherwise, no distinct injury. She has had previous injury to this knee, and has had a few surgeries, the last of which was performed in November. The pt has noticed pain and swelling. Pt states it hurts to bear weight. No other complaints at this time. PD PAST MEDICAL HISTORY - Past Medical History Past Medical History: Yes Cardiovascular: None Respiratory: None - Past Surgical History Past Surgical History: Yes Ortho: Arthroscopic surgery, Other - Present Medications Home Medications: Ambulatory Orders Medication Instructions Recorded Confirmed FLUoxetine [PROzac] 80 mg PO DAILY cap 06/20/23 10/22/23 Ibuprofen [Motrin] 800 mg PO Q6H PRN #11 tab 06/20/23 10/22/23 buPROPion [Wellbutrin Xl] 300 mg PO DAILY tab 06/20/23 10/22/23 Famotidine [Pepcid] 20 mg PO DAILY 10/22/23 10/22/23 Ibuprofen [Motrin] 800 mg PO Q8H PRN #30 tablet 10/22/23 Pnv No.95/Ferrous Fum/Folic AC 1 each PO DAILY 10/22/23 10/22/23 [ Caplet] Spironolactone [Aldactone] 25 mg PO DAILY 10/22/23 10/22/23 predniSONE [Deltasone] 10 mg PO [id number] #42 tab 10/22/23 - Allergies Allergies/Adverse Reactions: Allergies Allergy/AdvReac Type Severity Reaction Status Date / Time No Known Drug Allergies Allergy Verified 10/22/23 09:09 - Social History Does the pt smoke?: No Smoking Status: Never smoker Does the pt drink ETOH?: No Does the pt have substance abuse?: No - Immunizations Immunizations are current?: Yes PD ED PE NORMAL - Vitals Vital signs reviewed: Yes - General General: Alert and oriented X 3, No acute distress, Well developed/nourished - HEENT HEENT: Atraumatic, EOMI, Moist mucous membranes - Neck Neck: Supple, no meningeal sign - Cardiac Cardiac: Strong equal pulses - Respiratory Respiratory: No respiratory distress - Derm Derm: Normal color, Warm and dry, No rash - Extremities Extremities: No deformity, Other (moderate edema R knee, TTP inferomedially. No instability.) - Neuro Neuro: Alert and oriented X 3 - Psych Psych: Normal mood, Normal affect Results - Vitals Vitals: Oxygen O2 Source Room air - Rads (name of study) R knee XR Relevant Findings:: Final report received, See rad report (nad) PD Medical Decision Making - ED course Complexity details: reviewed results, re-evaluated patient, considered differential, d/w patient, d/w family ED course: The pt was treated symptomatically in the ED, and sent for XR, which was negative for acute findings. I have discussed the need for follow-up with the pt, as well as the usual indications for return. Departure - Departure Disposition: 01 Home, Self Care Clinical Impression: Knee pain, right Qualifiers: Chronicity: acute Qualified Code(s): M25.561 - Pain in right knee Condition: Stable Instructions: ED Knee Pain UKO Prescriptions: predniSONE [Deltasone] 10 mg PO [id number] #42 tab Ibuprofen [Motrin] 800 mg PO Q8H PRN #30 tablet PRN Reason: PAIN &/OR FEVER Comments: Your knee x-ray series looks good. Your screws appear to be in place and there is no roughage of the bone within the joint. No acute bony injury has been noted, furthermore. It is not clear exactly what caused her knee to flareup, since she did not have a distinct injury. It could simply be that you have been doing more activity lately and this has caused more [id number] on the scar tissue and the more reactive previously injured tissues. You may use ibuprofen and Tylenol at home as needed to help with symptoms. A prescription for ibuprofen and for steroid taper have been electronically transmitted to the [facility] pharmacy in [place] at your request. Both of these medications are safe for breast-feeding. Please follow-up with your doctor if you are not noticing any i mprovement in the next couple weeks to discuss having an MRI done. Forms: PCP List Discharge Date/Time: 10/22/23 10:36
== END 2023-10-22 10:36 | disposition home or self-care (01) ==
LOC: ED 08:56
DX: M25.561 Pain in right knee (principal); Z79.899 Other long term (current) drug therapy
CPT/HCPCS: 99283

== ENCOUNTER 2023-10-28 08:44 | Outpatient (CLI) | payer OTHER ==
[2023-10-28] MEDS ORDERED: GADOTERATE MEGLUMINE 10 MMOL/20 ML VIAL ONE (08:59)
[2023-10-28] MEDS ORDERED: GADOTERATE MEGLUMINE 10 MMOL/20 ML VIAL IVP ONE (13:08)
--- NOTE | 2023-10-28 13:09 | MRI Report ---
PROCEDURE: PELVIS W/WO INDICATIONS: ABN VAG BLEED, DEEP DYSPAREUNIA CONTRAST: 19.6ml clariscan TECHNIQUE: Coronal ultra fast SE, sagittal breath-hold T2 FSE; axial T1 FSE with and without fat saturation thro ugh the pelvis. Optional long- and short-axis uterine nonbreath-hold T2 FSE through the uterus. Sag ittal or axial dynamic ultra fast GE during administration of contrast. Post-contrast axial or coron al ultra fast GE / 2-D spoiled GE with fat saturation from the iliac crests to the symphysis. Option al diffusion weighted imaging and ADC may be performed. COMPARISON: None. FINDINGS: Image quality: Excellent. Uterus: Uterus is normal in size. Endometrium is normal in thickness. Junctional zone is normal in thickness at 12 mm or less. IUD within the central uterus Adnexa: Both ovaries are normal in size, without suspicious cystic or solid lesions. Greater than 2 5 follicles within the ovaries. Urinary system: Bladder wall is normal in thickness. Distal ureters are non distended. Urethra al ears normal in morphology. Nodes and vessels: No pelvic or inguinal adenopathy by size criteria. Iliac vessels are normal in s ize. Bowel and peritoneum: No pathologic free pelvic fluid. Inferior colon and small bowel loops are nor mal in caliber. Soft tissues: No inguinal hernias. No findings of pelvic floor incompetence in the absence of provo cation. Bones: Marrow demonstrates normal overall signal. IMPRESSION: Greater than 25 follicles per ovary, which can be seen in the setting of PCOS. IUD appropriately positioned within the endometrium. Reviewed by: Ahsan Mendoza on 10/28/2023 12:08 PM [facility] Approved by: Ahsan Mendoza on 10/28/2023 12:08 PM [facility] Station ID: [id number]
== END 2023-10-28 08:45 | disposition home or self-care (01) ==
LOC: DI 08:44
PROVIDERS: ATTEND Nurse Practitioner
DX: M54.50 Low back pain, unspecified (principal); N93.9 Abnormal uterine and vaginal bleeding, unspecified; N94.12 Deep dyspareunia; Z97.5 Presence of (intrauterine) contraceptive device
CPT/HCPCS: 72197; A9575